=== PATIENT | male | born 1995 | race Caucasian/White ===

== ENCOUNTER → 2017-01-15 | Outpatient (REF) | payer BC ==
[2017-01-15 14:26] LABS: ALBUMIN 4.5 GM/DL (3.2-5.2); ALKALINE PHOSPHATASE 66 U/L (45-117); ALT/SGPT 39 U/L (12-78); ANION GAP 5 MEQ/L (8-16); AST/SGOT 23 U/L (15-37); BASO # 0.1 K/mm3 (0.0-0.2); BASO % 0.7 % (0.0-1.0); BILIRUBIN,TOTAL 0.7 MG/DL (0.2-1.0); BLOOD UREA NITROGEN 12 MG/DL (7-18); CALCIUM LEVEL 8.9 MG/DL (8.5-10.1); CARBON DIOXIDE LEVEL 29 MEQ/L (21-32); CHLORIDE LEVEL 103 MEQ/L (98-107); CREATININE FOR GFR 0.92 MG/DL (0.70-1.30); EOS # 0.4 K/mm3 (0.0-0.50); EOS % 5.5 % (0.0-3.0); GLUCOSE, FASTING 93 MG/DL (70-105); LARGE UNSTAINED CELL # 0.1 K/mm3 (0.0-0.4); LARGE UNSTAINED CELL % 1.7 % (0.0-4.0); MEAN CORPUSCULAR HEMOGLOBIN 30.7 pg (27.0-33.0); MEAN CORPUSCULAR HGB CONC 34.1 g/dl (32.0-36.5); MEAN CORPUSCULAR VOLUME 90.2 fl (80.0-96.0); MONO # 0.6 K/mm3 (0.0-0.8); MONO % 7.2 % (0.0-5.0); NEUTROPHILS # 4.9 K/mm3 (1.8-7.7); NEUTROPHILS % 60.9 % (36.0-66.0); PLATELET COUNT, AUTOMATED 223 k/mm3 (150-450); POTASSIUM SERUM 3.9 MEQ/L (3.5-5.1); RED CELL DISTRIBUTION WIDTH 12.1 % (11.5-14.5); SODIUM LEVEL 137 MEQ/L (136-145); TOTAL PROTEIN 7.5 GM/DL (6.4-8.2)
== END ==
LOC: M LABNEURO 12:55
PROVIDERS: ATTEND Psychiatry & Neurology Neurology
DX: R56.9 Unspecified convulsions (principal)

== ENCOUNTER → 2025-08-05 | Outpatient (CLI) | payer OTHER ==
[~2025-08-05] MED LIST: ALBU8.5H; ALLE24TA7 PO; AMLO1TAB24 PO; EPIP0.3I2 IM; FERR325T3 PO; LIDO30CR18 TOP; LISI20TA33; ONDA-84 PO; ORAL0.1P MT; PROC10TA5 PO; SENN-186 PO; SYMB80INH; XANA0.25 PO
== END ==
LOC: M CARPUL 11:35
PROVIDERS: ATTEND Registered Nurse
DX: R07.9 Chest pain, unspecified (principal)